=== PATIENT | male | born 1960 | race Caucasian/White ===

== ENCOUNTER 2017-11-10 10:22 | Emergency (ER) | payer OTHER ==
[2017-11-10 11:18] LABS: PLATELET COUNT 250 10^3/uL (150-400)
--- NOTE | 2017-11-10 11:24 | EDPHY ---
H & P Stated Complaint: vertigo Time Seen by Provider: 11/10/17 11:12 HPI/ROS: CHIEF COMPLAINT: Vertigo, generalized weakness HISTORY OF PRESENT ILLNESS: The patient presents the ED after he experienced an episode of vertigo earlier today which was proceeded by generalized weakness and malaise. The patient is a type 2 diabetic who has a history of hypertension. He reports he has been somewhat dehydrated over the past 2 days. He denies any fever, vomiting, headache, neck pain or focal neurologic symptoms. The patient's symptoms have more less resolved but they were atypical which prompted his visit to the ED today. REVIEW OF SYSTEMS: A comprehensive 10 point review of systems is otherwise negative aside from elements mentioned in the history of present illness. Source: Patient Exam Limitations: No limitations - Personal History Current Tetanus/Diphtheria Vaccine: Yes Current Tetanus Diphtheria and Acellular Pertussis (TDAP): Yes - Medical/Surgical History Hx Asthma: No Hx Chronic Respiratory Disease: No Hx Diabetes: Yes Hx Cardiac Disease: Yes Hx Renal Disease: No Hx Cirrhosis: No Hx Alcoholism: No Hx HIV/AIDS: No Hx Splenectomy or Spleen Trauma: No Other PMH: HTN, hypercholesterol, diabetc 2, sleep apnea, CPAP - Social History Smoking Status: Former smoker - Physical Exam Exam: General Appearance: Alert, no distress Eyes: Pupils equal and round no pallor or injection ENT, Mouth: Mucous membranes moist Respiratory: There are no retractions, lungs are clear to auscultation Cardiovascular: Regular rate and rhythm Gastrointestinal: Abdomen is soft and nontender, no masses, bowel sounds normal Neurological: A&O, normal motor function, normal sensory exam, normal cranial nerves Skin: Warm and dry, no rashes Musculoskeletal: Neck is supple nontender Extremities: symmetrical, full range of motion Psychiatric: Patient is oriented X 3, there is no agitation Constitutional: Initial Vital Signs Temperature (C) 36.7 C 11/10/17 10:32 Heart Rate 82 11/10/17 10:32 Respiratory Rate 16 11/10/17 10:32 Blood Pressure 155/102 H 11/10/17 10:32 O2 Sat (%) 95 11/10/17 10:32 O2 Delivery Mode Room Air Allergies/Adverse Reactions: Penicillins Allergy (Verified 11/10/17 10:30) Home Medications: Medication Instructions Recorded Ascorbic Acid [Vitamin C 500 mg 1,000 mg PO DAILY 02/01/16 (*)] Atorvastatin Calcium [Lipitor 80 80 mg PO HS 02/01/16 mg] Carvedilol [Coreg (*)] 25 mg PO BIDMEAL 02/01/16 Cholecalciferol Vit D3 [Vitamin D3 5,000 units PO DAILY 02/01/16 (*)] Herbals/Supplements -Info Only 1 ea PO DAILY 02/01/16 Hydrochlorothiazide [HCTZ (*)] 50 mg PO DAILY 02/01/16 Lisinopril [Zestril 40 mg (*)] 40 mg PO DAILY 02/01/16 Ever[place]-3 Fatty Acids [Fish Oil 1000 1,000 mg PO DAILY 02/01/16 mg (*)] amLODIPine BESYLATE [Norvasc 10 mg 10 mg PO DAILY 02/01/16 (*)] metFORMIN HCL [Glucophage 500 mg 1,000 mg PO BIDMEAL 02/01/16 (*)] Potassium 04/16/16 Cinnamon 11/10/17 Trulicity 11/10/17 Medical Decision Making - Diagnostics EKG Interpretation: EKG: Complete interpretation has been separately recorded in the [employer] archive. Summary impression: Sinus rhythm, rate 76 ED Course/Re-evaluation: The patient presents the ED after an episode of peripheral vertigo with some residual generalized weakness. The patient arrived and was noted to be neurologically intact. He is hemodynamically stable. The patient's laboratory studies demonstrate only mild hyperglycemia without evidence of diabetic ketoacidosis. The patient did receive a L of normal saline in the emergency department. His EKG demonstrates no evidence of significant arrhythmia. The patient had serial examinations in the ED and is currently feeling much better and has had complete resolution of his symptoms. I do feel the patient can be discharged home with instructions to increase his fluid intake. He is advised to return to the ED for the development of any chest pain, difficulty breathing or other concerns. Differential Diagnosis: Differential diagnosis considered includes dehydration, metabolic abnormality, arrhythmia, hypoglycemia, diabetic ketoacidosis, hyperglycemia - Data Points Laboratory Results: Laboratory Results 11/10/17 11:04 11/10/17 11:04 11/10/17 11/10/17 11:04 11:04 WBC 14.74 10^3/uL H 10^3/uL (3.80-9.50) RBC 6.02 10^6/uL 10^6/uL (4.40-6.38) Hgb 17.6 g/dL H g/dL (13.7-17.5) Hct 52.5 % H % (40.0-51.0) MCV 87.2 fL fL (81.5-99.8) MCH 29.2 pg pg (27.9-34.1) MCHC 33.5 g/dL g/dL (32.4-36.7) RDW 14.7 % % (11.5-15.2) Plt Count 250 10^3/uL 10^3/uL (150-400) MPV 9.7 fL fL (8.7-11.7) Neut % (Auto) 80.2 % H % (39.3-74.2) Lymph % (Auto) 11.5 % L % (15.0-45.0) Dickson % (Auto) 5.4 % % (4.5-13.0) Eos % (Auto) 1.7 % % (0.6-7.6) Baso % (Auto) 0.6 % % (0.3-1.7) Nucleat RBC Rel Count 0.0 % % (0.0-0.2) Absolute Neuts (auto) 11.83 10^3/uL H 10^3/uL (1.70-6.50) Absolute Lymphs (auto) 1.69 10^3/uL 10^3/uL (1.00-3.00) Absolute Monos (auto) 0.79 10^3/uL 10^3/uL (0.30-0.80) Absolute Eos (auto) 0.25 10^3/uL 10^3/uL (0.03-0.40) Absolute Basos (auto) 0.09 10^3/uL 10^3/uL (0.02-0.10) Absolute Nucleated RBC 0.00 10^3/uL 10^3/uL (0-0.01) Immature Gran % 0.6 % % (0.0-1.1) Immature Gran # 0.09 10^3/uL 10^3/uL (0.00-0.10) Sodium 139 mEq/L mEq/L (135-145) Potassium 3.5 mEq/L mEq/L (3.3-5.0) Chloride 100 mEq/L mEq/L (97-110) Carbon Dioxide 23 mEq/l mEq/l (22-31) Anion Gap 16 mEq/L mEq/L (8-16) BUN 21 mg/dL mg/dL (7-23) Creatinine 1.2 mg/dL mg/dL (0.7-1.3) Estimated GFR > 60 Glucose 243 mg/dL H mg/dL (70-100) Calcium 9.9 mg/dL mg/dL (8.5-10.4) Total Bilirubin 1.3 mg/dL mg/dL (0.1-1.4) AST 23 IU/L IU/L (17-59) ALT 38 IU/L IU/L (21-72) Alkaline Phosphatase 86 IU/L IU/L (38-126) Total Protein 7.8 g/dL g/dL (6.3-8.2) Albumin 4.3 g/dL g/dL (3.5-5.0) Medications Given: Discontinued Medications Sodium Chloride (Ns) 1,000 mls @ 0 mls/hr IV EDNOW ONE; Wide Open PRN Reason: Protocol Stop: 11/10/17 11:57 Last Admin: 11/10/17 11:58 Dose: 1,000 mls Departure - Departure Disposition: Home, Routine, Self-Care Clinical Impression: Vertigo, Dehydration Condition: Good Instructions: Vertigo (ED) Additional Instructions: 1. Please return to the emergency department for any chest pain, difficulty breathing or other concerns. 2. Please follow up with your primary care provider as needed. 3. Please increase your fluid intake as mild dehydration may have contributed to your symptoms today. Referrals: Ofe Enriquez MD [Primary Care Provider] - As per Instructions
--- NOTE | 2017-11-10 11:50 | CPEKG ---
Heart Rate: 76 RR Interval: 789 P-R Interval: 224 QRSD Interval: 100 QT Interval: 404 QTC Interval: 455 P Lowell: 22 QRS Lowell: 83 T Wave Lowell: 28 EKG Severity - ABNORMAL ECG - EKG Impression: SINUS RHYTHM EKG Impression: FIRST DEGREE AV BLOCK Electronically Signed By: Chris Luis 10-Nov-2017 12:19:29
[2017-11-10] MEDS ORDERED: NS 1,000 ML IV ONE (11:56)
[2017-11-10 13:10] VITALS: BP 137/78
== END 2017-11-10 13:23 | disposition home or self-care (01) ==
DX: R42 Dizziness and giddiness (principal); E86.0 Dehydration; I10 Essential (primary) hypertension; E11.9 Type 2 diabetes mellitus without complications; E86.9 Volume depletion, unspecified; Z79.84 Long term (current) use of oral hypoglycemic drugs; Z87.891 Personal history of nicotine dependence